=== PATIENT | female | born 1990 | race Native Hawaiian/Other Pacific Islander ===

== ENCOUNTER 2016-09-25 12:02 | Inpatient (IN) | payer OTHER ==
[~2016-09-25] VITALS: Ht 162.6 cm; Wt 52.2 kg
[2016-09-25] VITALS (7 sets, daily range): BP systolic 119–153; BP diastolic 60–97; TEMP 98.4–103; Ht 162.6 cm; Wt 52.2 kg
[2016-09-25] MEDS ORDERED: ROXICODONE15 M1 PO (12:20)
[2016-09-25] MEDS ORDERED: DILAUDID2 MG/M1 IJ (12:21)
[2016-09-25 13:23] LABS: SODIUM 132 mmol/L (136-145)
[2016-09-25 13:24] LABS: PLATELET COUNT 308 K/uL (152-353)
[2016-09-26] VITALS (19 sets, daily range): BP systolic 110–141; BP diastolic 60–85; TEMP 98–100.4
[2016-09-26 06:23] LABS: PLATELET COUNT 234 K/uL (152-353)
[2016-09-26 06:36] LABS: SODIUM 132 mmol/L (136-145)
[2016-09-27] VITALS (12 sets, daily range): BP systolic 106–140; BP diastolic 60–94; TEMP 98.2–98.4
[2016-09-27 02:24] LABS: PLATELET COUNT 253 K/uL (152-353)
[2016-09-27 02:41] LABS: SODIUM 133 mmol/L (136-145)
[2016-09-28 04:49] VITALS: BP 125/73; TEMP 98.3
[2016-09-28 06:17] LABS: PLATELET COUNT 271 K/uL (152-353)
[2016-09-28 06:51] LABS: POTASSIUM 3.4 mmol/L (3.6-5.2); SODIUM 137 mmol/L (136-145)
[2016-09-28 08:00] VITALS: BP 142/90; TEMP 98.2
[2016-09-28 11:54] VITALS: BP 125/72; TEMP 98.1
== END 2016-09-28 15:20 | disposition left against medical advice (07) | DRG 603 ==
LOC: ED 12:02 → ICU 17:06
PROVIDERS: Emergency Medicine; ADMIT Specialist
DX: L03.113 Cellulitis of right upper limb (principal); N39.0 Urinary tract infection, site not specified; B96.29 Other Escherichia coli [E. coli] as the cause of diseases classified elsewhere; F10.10 Alcohol abuse, uncomplicated; F19.10 Other psychoactive substance abuse, uncomplicated; Z72.0 Tobacco use
CPT/HCPCS: 36415; 80053; 80170; 80202; 80307; 81000; 82550; 83735; 84100; 84484; 85027; 85379; 85651; 87040; 87077; 87086; 87088; 87185; 87186; 87205; 93005; 93306; 94760; 96365; 96367; 96372; 99281; 99284; G0479; J1100; J1580; J1650; J1885; J3370; J3475; Q9963